=== PATIENT | female | born 1980 | race Caucasian/White ===

== ENCOUNTER 2019-07-27 20:57 | Emergency (ER) | payer MEDICAID ==
[2019-07-27] MEDS ORDERED: Cephalexin 500 MG Cap PO ONE (20:58)
--- NOTE | 2019-07-27 21:32 | EDM.PDOC ---
ED HPI GENERAL MEDICAL PROBLEM - General Chief Complaint: Genitourinary Problem Stated Complaint: BLADDER INFECTION; POSSIBLE LOW POTASSIUM Time Seen by Provider: 07/27/19 21:29 History Limitations: Reports: No Limitations - History of Present Illness INITIAL COMMENTS - FREE TEXT/NARRATIVE: 39 yo female with dysuria x 1 week,along with low back pain. No fever. No URI symptoms. She has had a rash for 3 weeks,itchy,widespread. Nothing is helping. - Related Data Allergies Allergy/AdvReac Type Severity Reaction Status Date / Time hydrocortisone Allergy Unknown Other Verified 07/27/19 21:26 cortisone Allergy Other Verified 07/27/19 21:26 Penicillins Allergy Other Verified 07/27/19 21:25 sulfamethoxazole Allergy Other Verified 07/27/19 21:26 [From Bactrim] trimethoprim [From Bactrim] Allergy Other Verified 07/27/19 21:26 Home Meds: Home Meds Albuterol/Ipratropium [Combivent Respimat] 2 puff INH ASDIRECTED PRN 07/27/19 [ History] FLUoxetine HCl [Fluoxetine HCl] 1 tab PO DAILY 07/27/19 [History] Levothyroxine 1 tab PO DAILY 07/27/19 [History] Permethrin 60 gm .XX ONETIME #1 tube 07/27/19 [Rx] traZODone 100 mg PO BEDTIME 07/27/19 [History] ED ROS GENERAL - Review of Systems Review Of Systems: Comprehensive ROS is negative, except as noted in HPI. ED EXAM, RENAL/ - Physical Exam Exam: See Below Exam Limited By: No Limitations General Appearance: Alert Nose: Nasal Tenderness, Other (ulcer on the rt nare) Head: Atraumatic Respiratory/Chest: No Respiratory Distress, Lungs Clear Cardiovascular: Normal Peripheral Pulses Skin Exam: Warm, Rash (papular rash,red,around neck,upper chest,hands.) Course - Vital Signs Last Recorded V/S: Last Vital Signs Temp 97.7 F 07/27/19 21:16 Pulse 86 07/27/19 21:16 Resp 14 07/27/19 21:16 BP 112/76 07/27/19 21:16 Pulse Ox 100 07/27/19 21:16 - Orders/Labs/Meds Orders: Active Orders 24 hr Category Date Time Status CHLAMYDIA/GC AMPLIFICATION Stat Lab 07/27/19 21:36 Received CULTURE URINE [RM] Stat Lab 07/27/19 22:00 Ordered Labs: Laboratory Tests 07/27/19 07/27/19 07/27/19 Range/Units 21:36 21:40 21:40 WBC 5.4 (4.5-12.0) X10-3/uL RBC 4.55 (3.23-5.20) x10(6)uL Hgb 14.1 (11.5-15.5) g/dL Hct 42.1 (30.0-51.3) % MCV 92.4 (80-96) fL MCH 30.9 (27.7-33.6) pg MCHC 33.4 (32.2-35.4) g/dL RDW 12.8 (11.5-15.5) % Plt Count 212 (125-369) X10(3)uL MPV 8.7 (7.4-10.4) fL Neut % (Auto) 45.3 L (46-82) % Lymph % (Auto) 42.7 H (13-37) % [place] % (Auto) 8.0 (4-12) % Eos % (Auto) 2 (1.0-5.0) % Baso % (Auto) 2 (0-2) % Neut # (Auto) 2.5 (1.6-8.3) # Lymph # (Auto) 2.3 (0.6-5.0) # [place] # (Auto) 0.4 (0.0-1.3) # Eos # (Auto) 0.1 (0.0-0.8) # Baso # (Auto) 0.1 (0.0-0.2) # Sodium 141 (135-145) mmol/L Potassium 3.3 L (3.5-5.3) mmol/L Chloride 102 (100-110) mmol/L Carbon Dioxide 30 (21-32) mmol/L BUN 13 (7-18) mg/dL Creatinine 0.9 (0.55-1.02) mg/dL Est Cr Clr Drug Dosing 78.56 mL/min Estimated GFR (MDRD) > 60 (>60) BUN/Creatinine Ratio 14.4 (9-20) Glucose 72 L (80-116) mg/dL Calcium 8.3 L (8.6-10.2) mg/dL Urine Color Red (YELLOW) Urine Appearance Slightly cloudy (CLEAR) Urine pH 6.0 (5.0-6.5) Ur Specific [place] 1.015 (1.010-1.025) Urine Protein 30 H (NEGATIVE) mg/dL Urine Glucose (UA) Normal (NORMAL) mg/dL Urine Ketones Negative (NEGATIVE) mg/dL Urine Occult Blood Large H (NEGATIVE) Urine Nitrite Negative (NEGATIVE) Urine Bilirubin Negative (NEGATIVE) Urine Urobilinogen Normal (NEGATIVE) mg/dL Ur Leukocyte Esterase Small H (NEGATIVE) Urine RBC 20-30 H (0-5) Urine WBC 10-20 H (0-5) Ur Squamous Epith Cells Few H (NS,R,O) Urine Bacteria Few H (NS) Departure - Departure Time of Disposition: 22:17 Disposition: Home, Self-Care 01 Condition: Good Clinical Impression: Scabies - Discharge Information Prescriptions: Permethrin 60 gm .XX ONETIME #1 tube Instructions: Scabies, Adult Referrals: PCP,None [Primary Care Provider] - Forms: ED Department Discharge Sepsis Event Note - Focused Exam Vital Signs: Vital Signs Temp Pulse Resp BP Pulse Ox 07/27/19 21:16 97.7 F 86 14 112/76 100 Date Exam was Performed: 07/27/19 Time Exam was Performed: 22:17 - Problem List & Annotations (1) Scabies SNOMED Code(s): 937468866, 410376603 Code(s): B86 - SCABIES Status: Acute Current Visit: Yes (2) Impetigo SNOMED Code(s): 62915784 Code(s): L01.00 - IMPETIGO, UNSPECIFIED Status: Acute Current Visit: Yes (3) UTI (urinary tract infection) SNOMED Code(s): 11749977 Code(s): N39.0 - URINARY TRACT INFECTION, SITE NOT SPECIFIED Status: Acute Current Visit: Yes Qualifiers: Urinary tract infection type: acute cystitis - Problem List Review Problem List Initiated/Reviewed/Updated: Yes - My Orders Last 24 Hours: My Active Orders 07/27/19 21:36 CHLAMYDIA/GC AMPLIFICATION Stat 07/27/19 22:00 CULTURE URINE [RM] Stat - Assessment/Plan Last 24 Hours: My Active Orders 07/27/19 21:36 CHLAMYDIA/GC AMPLIFICATION Stat 07/27/19 22:00 CULTURE URINE [RM] Stat Plan: Cephalexin,oral. Permethrin. GC and chlamydia sent out. Follow up on Wednesday with PCP
[2019-07-31 13:11] LABS: CHLAMYDIA TRACHOMATIS, NAA Negative (Negative); NEISSERIA GONORRHOEAE, NAA Negative (Negative)
== END 2019-07-27 22:28 | disposition home or self-care (01) ==
LOC: FB.ED 20:57
DX: B86 Scabies (principal); Z79.899 Other long term (current) drug therapy; Z88.0 Allergy status to penicillin; Z88.2 Allergy status to sulfonamides; Z88.8 Allergy status to other drugs, medicaments and biological substances
CPT/HCPCS: 36415; 80048; 81001; 85025; 87086; 87088; 87186; 87491; 87591; 99283; A9270-GY